=== PATIENT | male | born 1945 | race Caucasian/White ===

== ENCOUNTER → 2020-03-20 | Outpatient (CLI) | payer MEDICARE ==
[~2020-03-20] MED LIST: ASPI325 PO; ATEN50 PO; HYDCHL12.5 PO; IRBE150 PO; ROSU10TA PO
== END ==
LOC: LAB SHORT 08:50 → PLD 08:50
DX: D48.5 Neoplasm of uncertain behavior of skin (principal)
CPT/HCPCS: 88305

== ENCOUNTER → 2021-03-06 | Outpatient (CLI) | payer MEDICARE | END | disposition home or self-care (01) | LOC: LAB 07:36 → LAB SHORT 07:36 | DX: D48.5 Neoplasm of uncertain behavior of skin (principal) | CPT/HCPCS: 88305 ==